=== PATIENT | male | born 1990 | race African-American/Black ===

== ENCOUNTER 2019-07-18 04:32 | Emergency (ER) | payer SELFPAY ==
[2019-07-18 04:36] VITALS: BP 162/98; PULSE 120; RESP 18; TEMP 36; O2SAT 100
--- NOTE | 2019-07-18 04:55 | ED.SKABFB ---
HPI - Skin/Abscess/Foreign Bdy General Chief complaint: Skin/Abscess/Foreign Body Stated complaint: spider bite? Time Seen by Provider: 07/18/19 04:43 Source: patient Mode of arrival: ambulatory Limitations: no limitations History of Present Illness HPI narrative: Patient is a 29-year-old male who presents to the emergency department with possible spider bite to his left foot. Patient was walking across his wood floor barefoot when he felt like he got bit by something. Patient has not noticed any redness or swelling. He denies any pain to that area. Patient additionally reports that he is noticed some peeling of his hands and feet and his skin feels dry. Patient denies any other symptoms or problems. MD complaint: insect bite/sting Onset (ago): minute(s) (45) Location: L foot Associated symptoms: denies other symptoms Related Data Home Medications Medication Instructions Recorded Confirmed No Home Medications 07/18/19 07/18/19 Allergies Allergy/AdvReac Type Severity Reaction Status Date / Time No Known Allergies Allergy Unknown Verified 07/18/19 04:57 Review of Systems Review of Systems: All systems reviewed & are unremarkable except as noted in HPI and below PMFSH Surgical History Surgical History (Updated 07/18/19 @ 04:57 by Ayleen Aragon MD) History of hernia repair Social History Social History (Updated 07/18/19 @ 04:57 by Ayleen Aragon MD) Smoking status: Never smoker Exam Const: General: cooperative, no acute distress and alert Nutritional Appearance: well nourished Orientation/consciousness: patient oriented x3 Limitations: no limitations Resp: Effort & Inspection: normal respiratory effort Skin: General skin exam: normal color and dry skin (Flaky dry patches of skin on hands and feet bilaterally) Neuro: General: patient oriented x3 Cognition (Neuro): normal cognition Speech: normal speech Extrem: General: normal to inspection, full ROM and no clubbing, cyanosis or edema Other: No evidence of bite, wound, redness, or swelling to plantar surface of left foot. Psych: Mental Status: mental status grossly normal Affect: normal affect Attitude: cooperative Course Course Emergency Course: Patient provided reassurance no wounds noted on his left foot where he thinks he may have been bit by something. Patient also provided reassurance that his peeling skin looks consistent with dry skin. No overt pathology noted. Advised primary care follow-up as needed. Vital Signs Vital signs: Vital Signs Temperature 96.8 F L 07/18/19 04:36 Pulse Rate 120 H 07/18/19 04:36 Respiratory Rate 18 07/18/19 04:36 Blood Pressure 162/98 H 07/18/19 04:36 Pulse Oximetry 100 07/18/19 04:36 Temperature 96.8 F L 07/18/19 04:36 Pulse Rate 120 H 07/18/19 04:36 Respiratory Rate 18 07/18/19 04:36 Blood Pressure 162/98 H 07/18/19 04:36 Pulse Oximetry 100 07/18/19 04:36 Critical Care Time Critical Care Time Critical Care Time: No Discharge Plan Discharge Clinical Impression: Left foot pain, Dry skin Patient Disposition: Home, Self-Care Condition: Stable Additional Instructions: Follow-up with primary care physician in the office for further care if needed. Prescriptions: No Action No Home Medications RF: 0 Follow-up/Referrals: Guevara Ferrara MD [Primary Care Provider] -
== END 2019-07-18 05:10 | disposition home or self-care (01) ==
PROVIDERS: Emergency Provider Emergency Medicine; PCP Family Medicine Adolescent Medicine
DX: M79.672 Pain in left foot (principal); L85.3 Xerosis cutis
CPT/HCPCS: 99281

== ENCOUNTER 2019-11-30 12:34 | Emergency (ER) | payer SELFPAY ==
[2019-11-30 12:40] VITALS: BP 143/89; PULSE 72; RESP 12; TEMP 36.7; O2SAT 100
--- NOTE | 2019-11-30 13:27 | ED_ITS ---
HPI - URI/Sore Throat General Chief Complaint: Upper Respiratory Infection Stated Complaint: stiff neck/difficulty swallowing/burrows Source: patient and RN notes reviewed Limitations: no limitations History of Present Illness HPI Narrative: The patient, a non-smoker/occasional drinker, presents with left throat neck pain. Patient states he has 1/2-week history of left, sore neck/throat and enlarge lymph node on the left side. No fever, hoarseness, trismus, poor dentition, visible swelling, related to meals, loss of taste/smell, cough, shortness of breath. Symptoms are mild, minimally worse with palpation Related Data Allergies Allergy/AdvReac Type Severity Reaction Status Date / Time No Known Allergies Allergy Unknown Verified 11/30/19 12:47 Review of Systems Review of Systems: Narrative: General/Constitutional: No weight loss,fever Eyes: N0: Redness,discharge Ears/Nose/Throat: No: Epistaxis,ear discharge Respiratory: Denies: Hemoptysis Gastrointestinal: No Vomiting, Bleeding-rectal Skin: No Lumps, eruption Neurologic: No Focal Weakness,Sz Hematologic: Denies: Petechiae/Purpura Psychiatric: No: Suicida ideationl All Other Systems: Reviewed and Negative [facility] Surgical History Surgical History (Updated 07/18/19 @ 04:57 by Ayleen Aragon MD) History of hernia repair Social History Social History (Updated 07/18/19 @ 04:57 by Ayleen Aragon MD) Smoking status: Never smoker Comments At time of signature, agree with nursing past medical, surgical, social and family history. There is no relevant family history pertinent to the presenting complaint Exam Narrative: Exam Narrative: General Appearance: Well appearing, Conjunctiva nl Ears: External ear normal, Auditory canal normal Nose: Normal nose, Nares clear Mouth/Throat: Normal appearing, Normal lips Neck: Supple, submaxillary adenopathy Respiratory: Airway patent, No respiratory distress Neurological: A&O x3, Normal affect Course Vital Signs Vital signs: Vital Signs Temperature 98.0 F 11/30/19 12:40 Pulse Rate 72 11/30/19 12:40 Respiratory Rate 12 11/30/19 12:40 Blood Pressure 143/89 H 11/30/19 12:40 Pulse Oximetry 100 11/30/19 12:40 Temperature 98.0 F 11/30/19 12:40 Pulse Rate 72 11/30/19 12:40 Respiratory Rate 12 11/30/19 12:40 Blood Pressure 143/89 H 11/30/19 12:40 Pulse Oximetry 100 11/30/19 12:40 Discharge Plan Discharge Clinical Impression: Lymphadenopathy of left cervical region Patient Disposition: Home, Self-Care Condition: Stable Instructions: Antibiotic Form, Lymphadenopathy (ED) Prescriptions: New azithromycin 250 mg tablet See Rx Instructions .ROUTE .COMPLEX Qty: 6 RF: 0 Lidocaine Viscous 2 % solution 5 ml MUCOUS MEM QID PRN (Reason: pain) Qty: 110 RF: 0 Other Ambulatory Orders: SARS-CoV-2 RNA, Qual RT-PCR (Routine) Location: Determined by Patient Ordered By: Kurt Youngblood Follow-up/Referrals: Guevara Ferrara MD [Primary Care Provider] -
== END 2019-11-30 13:12 | disposition home or self-care (01) ==
PROVIDERS: Emergency Provider Emergency Medicine; PCP Family Medicine Adolescent Medicine
DX: R59.1 Generalized enlarged lymph nodes (principal); Z20.828 Contact with and (suspected) exposure to other viral communicable diseases
CPT/HCPCS: 99213; G0463